=== PATIENT | female | born 1980 | race Caucasian/White ===

== ENCOUNTER → 2024-07-30 07:51 | Outpatient (REF) | payer OTHER, SELFPAY | LOC: WDC 07:51 | PROVIDERS: ATTENDING PHYSICIAN Nurse Practitioner Family; FAMILY PHYSICIAN Physician Assistant Medical | DX: Z12.31 Encounter for screening mammogram for malignant neoplasm of breast (principal) | CPT/HCPCS: 77063; 77067 ==